=== PATIENT | female | born 2000 | race Hispanic/Latino ===

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

== ENCOUNTER 2022-02-21 15:38 | Observation (INO) | payer OTHER ==
[~2022-02-21] VITALS: Ht 160 cm; Wt 52.2 kg
[2022-02-21] MEDS ORDERED: SODIUM CHLORIDE 0.9% 1000ML 1,000 ML IV STA ×2 (16:26→17:00)
[2022-02-21 16:42] LABS: BASOPHILS % 0.3 % (0.0-1.0); EOSINOPHILS % 0.3 % (0.0-6.0); HEMATOCRIT 40.7 % (34.2-44.1); HEMOGLOBIN 12.9 g/dL (12.0-16.0); LYMPHOCYTES # (AUTO) 1.8 (1.0-3.2); LYMPHOCYTES % 13.8 % (18.0-39.1); MEAN CORPUSCULAR HEMOGLOBIN 28.4 pg (28-32); MEAN CORPUSCULAR HGB CONC 31.7 g/dL (31-35); MEAN CORPUSCULAR VOLUME 89.5 fL (81-99); MONOCYTES # (AUTO) 1.3 (0.2-0.8); MONOCYTES % 9.8 % (4.4-11.3); NEUTROPHILS # (AUTO) 9.7 (2.1-6.9); NEUTROPHILS % 75.5 % (38.7-80.0); PLATELET COUNT 250 x10e3/uL (140-360); RED BLOOD COUNT 4.55 x10e6/uL (3.6-5.1); RED CELL DISTRIBUTION WIDTH 12.5 % (11.7-14.4)
[2022-02-21] MEDS ORDERED: ACETAMINOPHEN 325 MG TAB PO ONE (16:45)
[2022-02-21 16:54] LABS: CLARITY,URINE CLOUDY (CLEAR); COLOR,URINE YELLOW (YELLOW); KETONES,URINE NEGATIVE (NEGATIVE); LEUKOCYTE ESTERASE ,URINE NEGATIVE (NEGATIVE); NITRITE,URINE NEGATIVE (NEGATIVE); PROTEIN,URINE DIPSTICK NEGATIVE (NEGATIVE)
[2022-02-21 16:55] LABS: INR 0.97; PROTHROMBIN TIME 13.8 seconds (11.9-14.5); URINE UROBILINOGEN 0.2 mg/dL (0.2 - 1)
[2022-02-21 16:56] LABS: PARTIAL THROMBOPLASTIN TIME 28.4 seconds (23.8-35.5)
[2022-02-21 17:03] LABS: ALBUMIN 4.1 g/dL (3.5-5.0); ALBUMIN/GLOBULIN RATIO 1.1 (0.8-2.0); ANION GAP 15.8 mmol/L (8-16); CALCIUM 9.3 mg/dL (8.4-10.2); CREATININE, SERUM 0.78 mg/dL (0.57-1.11); POTASSIUM 3.8 mmol/L (3.5-5.1)
[2022-02-21 17:05] LABS: AMORPHOUS SEDIMENT,URINE MANY (FEW); BACTERIA,URINE MODERATE /HPF
[2022-02-21] MEDS ORDERED: ONDANSETRON HCL INJ 2MG/ML 2ML 2 MG/ML VIAL IV STA (17:10)
[2022-02-21] MEDS ORDERED: FENTANYL CITRATE/PF 100MCG/2 ML INJ IV ONE (17:15)
[2022-02-21] MEDS ORDERED: ONDANSETRON HCL INJ 2MG/ML 2ML 2 MG/ML VIAL IV PRN (19:00)
[2022-02-21] MEDS ORDERED: Morphine 4mg Syringe 4 MG/ML INJ IV PRN (19:00)
[2022-02-21 20:20] VITALS: BP_SYST 107; BP_SYST 111; BP_DIAS 66; BP_DIAS 81
[2022-02-21] MEDS ORDERED: PIPERACILLIN/TAZOBACTAM 4.5 GM in SODIUM CHLORIDE 0.9% 100 ML IV SCH (21:00)
[2022-02-21] MEDS: SODIUM CHLORIDE 0.9% 1000ML 1,000 ML IV SCH (21:40)
[2022-02-22] VITALS: BP 116/81
[2022-02-22 04:00] VITALS: BP 108/73
[2022-02-22 05:33] LABS: BASOPHILS % 0.2 % (0.0-1.0); EOSINOPHILS # (AUTO) 0.1 (0.0-0.4); HEMATOCRIT 35.2 % (34.2-44.1); HEMOGLOBIN 11.2 g/dL (12.0-16.0); LYMPHOCYTES # (AUTO) 1.8 (1.0-3.2); LYMPHOCYTES % 19.8 % (18.0-39.1); MEAN CORPUSCULAR HEMOGLOBIN 28.5 pg (28-32); MEAN CORPUSCULAR HGB CONC 31.8 g/dL (31-35); MEAN CORPUSCULAR VOLUME 89.6 fL (81-99); MONOCYTES # (AUTO) 1.1 (0.2-0.8); MONOCYTES % 12.3 % (4.4-11.3); NEUTROPHILS # (AUTO) 5.9 (2.1-6.9); NEUTROPHILS % 66.5 % (38.7-80.0); PLATELET COUNT 204 x10e3/uL (140-360); RED BLOOD COUNT 3.93 x10e6/uL (3.6-5.1); RED CELL DISTRIBUTION WIDTH 12.6 % (11.7-14.4)
[2022-02-22 05:58] LABS: ANION GAP 11.6 mmol/L (8-16); CALCIUM 7.6 mg/dL (8.4-10.2); CREATININE, SERUM 0.63 mg/dL (0.57-1.11); POTASSIUM 3.6 mmol/L (3.5-5.1)
[2022-02-22] MEDS: SODIUM CHLORIDE 0.9% 1000ML 1,000 ML IV SCH ×3 (07:26→19:00)
[2022-02-22 07:56] VITALS: BP 110/64
[2022-02-22] MEDS ORDERED: BUPIVACAINE 0.25% 30ML SDV ONE (08:29)
[2022-02-22] MEDS: PIPERACILLIN/TAZOBACTAM 4.5 GM in SODIUM CHLORIDE 0.9% 100 ML IV SCH ×2 (09:22→21:51)
[2022-02-22] MEDS ORDERED: NEOSTIGMINE 1 MG/ML 10ML VIAL ONE (12:29)
[2022-02-22] MEDS ORDERED: PROPOFOL IV EMULSION 10 MG/ML 20 ML VIAL ONE (12:29)
[2022-02-22] MEDS ORDERED: POVIDONE IODINE 0.05% 0.05 % ML PO ONE (12:29)
[2022-02-22] MEDS ORDERED: ONDANSETRON HCL INJ 2MG/ML 2ML 2 MG/ML VIAL ONE ×2 (12:29→13:09)
[2022-02-22] MEDS ORDERED: ROCURONIUM BROMIDE 10 MG/ML 5ML VIAL IV ONE (12:29)
[2022-02-22] MEDS ORDERED: KETOROLAC TROMETHAMINE 30 MG/ML VIAL ONE ×2 (12:29→13:09)
[2022-02-22] MEDS ORDERED: SEVOFLURANE INHAL SOLN 250 ML PEN BTL ONE (12:29)
[2022-02-22] MEDS ORDERED: ATROPINE SULFATE 1 MG/ML VIAL ONE (12:29)
[2022-02-22] MEDS ORDERED: DEXAMETHASONE SOD PHOS INJ 4 MG/ML SDV ONE (12:29)
[2022-02-22] MEDS ORDERED: HYDROMORPHONE 1MG/1ML INJ IV PRN (12:45)
[2022-02-22] MEDS ORDERED: KETOROLAC TROMETHAMINE 30 MG/ML VIAL IV PRN (12:45)
[2022-02-22] MEDS ORDERED: MIDAZOLAM HCL 2 MG/2 ML VIAL ONE ×2 (13:14→13:38)
[2022-02-22] MEDS ORDERED: FENTANYL CITRATE/PF 100MCG/2 ML INJ ONE ×2 (13:14→13:20)
[2022-02-22] MEDS ORDERED: MEPERIDINE HCL INJ 25 MG/ML VIAL ONE ×2 (13:15→13:33)
[2022-02-22 15:25] VITALS: BP 114/55
[2022-02-22 16:17] VITALS: BP 114/55
[2022-02-22 20:00] VITALS: BP 97/60
[2022-02-22] MEDS: HYDROCODONE/APAP 5MG-325MG TAB PO PRN (20:34)
[2022-02-23] VITALS (7 sets, daily range): BP systolic 99–119; BP diastolic 56–70
[2022-02-23] MEDS: SODIUM CHLORIDE 0.9% 1000ML 1,000 ML IV SCH ×2 (03:00→11:00)
[2022-02-23] MEDS: HYDROCODONE/APAP 5MG-325MG TAB PO PRN ×3 (03:26→13:12)
[2022-02-23 06:30] LABS: BASOPHILS % 0.2 % (0.0-1.0); EOSINOPHILS % 0.3 % (0.0-6.0); HEMATOCRIT 34.5 % (34.2-44.1); LYMPHOCYTES # (AUTO) 1.9 (1.0-3.2); LYMPHOCYTES % 17.4 % (18.0-39.1); MEAN CORPUSCULAR HEMOGLOBIN 28.7 pg (28-32); MEAN CORPUSCULAR HGB CONC 31.9 g/dL (31-35); MEAN CORPUSCULAR VOLUME 90.1 fL (81-99); MONOCYTES # (AUTO) 1.1 (0.2-0.8); MONOCYTES % 9.7 % (4.4-11.3); NEUTROPHILS # (AUTO) 7.8 (2.1-6.9); NEUTROPHILS % 71.8 % (38.7-80.0); PLATELET COUNT 262 x10e3/uL (140-360); RED BLOOD COUNT 3.83 x10e6/uL (3.6-5.1); RED CELL DISTRIBUTION WIDTH 12.6 % (11.7-14.4)
[2022-02-23 06:51] LABS: ANION GAP 13.3 mmol/L (8-16); CALCIUM 8.5 mg/dL (8.4-10.2); CREATININE, SERUM 0.72 mg/dL (0.57-1.11); POTASSIUM 4.3 mmol/L (3.5-5.1)
[2022-02-23] MEDS: PIPERACILLIN/TAZOBACTAM 4.5 GM in SODIUM CHLORIDE 0.9% 100 ML IV SCH (09:13)
== END 2022-02-23 18:10 | disposition home or self-care (01) ==
LOC: ER 15:51 → ERHOLD 18:51 → MED/SURG 20:06
PROVIDERS: ADMIT Surgery; ATTEND Surgery
DX: K35.80 Unspecified acute appendicitis (principal); Z20.822 Contact with and (suspected) exposure to COVID-19
CPT/HCPCS: 36415 ×3; 44970; 71045; 74176; 80048 ×2; 80053; 81001; 81025; 83605; 84702; 85025 ×3; 85610; 85730; 87040; 87086; 88304; 94799; 99284; C1713; C1766; G0378 ×3; J0461; J1100; J1170; J1885; J2175; J2250; J2405 ×2; J2543 ×4; J2704; J2710; J3010 ×2; J7030 ×3; J7050 ×3; U0002